=== PATIENT | male | born 1950 | race Caucasian/White ===

== ENCOUNTER 2016-04-26 19:38 | Emergency (ER) | payer OTHER, MEDICARE, MEDICAID ==
[2016-04-26] MEDS ORDERED: OXYCODONE HCL 5 MG TABLET PO ONE (20:06)
[2016-04-26 20:11] VITALS: TEMP 98.2; BMI 26.3
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
[2016-04-26 21:40] VITALS: BP 124/81; PULSE 84
== END 2016-04-26 21:38 | disposition home or self-care (01) ==
LOC: EDMC 19:38
DX: S20.319A Abrasion of unspecified front wall of thorax, initial encounter (principal); S30.811A Abrasion of abdominal wall, initial encounter; V49.40XA Driver injured in collision with unspecified motor vehicles in traffic accident, initial encounter; Y93.9 Activity, unspecified
CPT/HCPCS: 71111; 74020; 99283; J3490